=== PATIENT | male | born 1985 | race African-American/Black ===

== ENCOUNTER 2022-01-31 06:48 | Emergency (ER) | payer MEDICAID ==
[~2022-01-31] VITALS: Ht 182.9 cm; Wt 73.0 kg
[2022-01-31 06:58] VITALS: BP 106/67
[2022-01-31] MEDS ORDERED: NYSTATIN 100,000 UNITS/ML 5ML UDC SSW STA (08:24)
[2022-01-31] MEDS ORDERED: ACET160S MT (09:10)
== END 2022-01-31 09:47 | disposition home or self-care (01) ==
LOC: ER 06:48
DX: K20.90 Esophagitis, unspecified without bleeding (principal); I10 Essential (primary) hypertension; J45.909 Unspecified asthma, uncomplicated
CPT/HCPCS: 99283

== ENCOUNTER 2022-03-26 13:02 | Inpatient (IN) | payer MEDICAID ==
[~2022-03-26] VITALS: Ht 182.9 cm; Wt 64.9 kg
[~2022-03-26 13:02] MED LIST: ALBU6.7H3 ORI; BUSP5TAB3 PO; HYDR-4001 PO; SULF-292 PO; ZITH6 PO
[2022-03-26] MEDS ORDERED: ACETAMINOPHEN 325MG TABLET PO ONE (14:45)
[2022-03-26 15:15] LABS: HEMATOCRIT. 27.2 % (42.0-52.0); HEMOGLOBIN. 8.9 g/dL (14.0-18.0); MEAN CORPUSCULAR HEMOGLOBIN 26.2 pg (28.0-32.0); MEAN CORPUSCULAR VOLUME 80.4 fL (80.0-94.0); MEAN PLATELET VOLUME 7.1 fl (7.4-10.4); PLATELET 305 x1000/uL (130-400); RED BLOOD CELL COUNT 3.38 mill/uL (4.7-6.1); RED CELL DISTRIBUTION WIDTH 20.3 % (11.6-14.6)
[2022-03-26] MEDS ORDERED: SODIUM CHLORIDE 0.9% 1,000 ML IV ONE (15:15)
[2022-03-26 15:25] LABS: CHLORIDE 106 mEq/L (98-107)
[2022-03-26 17:13] LABS: PLATELET ESTIMATE NORMAL
[2022-03-26] MEDS ORDERED: ONDANSETRON HCL 4MG/2ML INJ IV PRN (17:30)
[2022-03-26] MEDS ORDERED: CLONIDINE 0.1MG TABLET PO PRN (17:30)
[2022-03-26] MEDS ORDERED: NALOXONE HCL 0.4MG/ML VIAL IV PRN (17:30)
[2022-03-26] MEDS ORDERED: DIPHENHYDRAMINE 50MG/ML VIAL IV PRN (17:30)
[2022-03-26] MEDS: HYDROCODONE/ACETAMINOPHEN 5/325MG TABLET PO PRN (19:03)
[2022-03-26] MEDS: SULFAMETHOXAZOLE/TRIMETHOPRIM 800/160MG TABLET PO SCH (19:03)
[2022-03-27] MEDS: HYDROCODONE/ACETAMINOPHEN 5/325MG TABLET PO PRN ×5 (01:25→19:35)
[2022-03-27 07:30] VITALS: BP 115/62
[2022-03-27 08:00] VITALS: BP 115/62
[2022-03-27] MEDS: IPRATROPIUM/ALBUTEROL 0.5-3(2.5)MG/3ML NEB HHN SCH ×2 (08:24→13:36)
[2022-03-27 09:43] LABS: HEMATOCRIT. 24.6 % (42.0-52.0); MEAN CORPUSCULAR HEMOGLOBIN 26.3 pg (28.0-32.0); MEAN CORPUSCULAR VOLUME 80.7 fL (80.0-94.0); MEAN PLATELET VOLUME 7.6 fl (7.4-10.4); PLATELET 261 x1000/uL (130-400); RED BLOOD CELL COUNT 3.05 mill/uL (4.7-6.1); RED CELL DISTRIBUTION WIDTH 19.8 % (11.6-14.6)
[2022-03-27 09:53] LABS: CHLORIDE 110 mEq/L (98-107)
[2022-03-27 12:00] VITALS: BP 114/66
[2022-03-27 13:43] LABS: PLATELET ESTIMATE NORMAL
[2022-03-27 16:00] VITALS: BP 108/68
[2022-03-27] MEDS: SULFAMETHOXAZOLE/TRIMETHOPRIM 800/160MG TABLET PO SCH (17:09)
[2022-03-27 20:00] VITALS: BP 112/73
[2022-03-27 23:57] VITALS: BP 107/68
[2022-03-28] MEDS: HYDROCODONE/ACETAMINOPHEN 5/325MG TABLET PO PRN ×4 (01:22→20:49)
[2022-03-28 04:00] VITALS: BP 118/69
[2022-03-28 08:00] VITALS: BP 123/77
[2022-03-28 12:00] VITALS: BP 116/74
[2022-03-28 16:00] VITALS: BP 112/70
[2022-03-28] MEDS: SULFAMETHOXAZOLE/TRIMETHOPRIM 800/160MG TABLET PO SCH (17:58)
[2022-03-28 20:00] VITALS: BP 119/68
[2022-03-28] MEDS: IPRATROPIUM BROMIDE (0.02%) 0.5MG/2.5ML NEB HHN SCH (20:45)
[2022-03-28] MEDS: ALBUTEROL (0.083%) 2.5MG/3ML NEB HHN SCH (20:45)
[2022-03-29] MEDS: HYDROCODONE/ACETAMINOPHEN 5/325MG TABLET PO PRN ×4 (01:11→16:14)
[2022-03-29 01:15] VITALS: BP 103/70
[2022-03-29] MEDS: IPRATROPIUM BROMIDE (0.02%) 0.5MG/2.5ML NEB HHN SCH ×2 (02:45→08:45)
[2022-03-29] MEDS: ALBUTEROL (0.083%) 2.5MG/3ML NEB HHN SCH ×2 (02:45→08:45)
[2022-03-29 08:00] VITALS: BP 103/69
[2022-03-29 12:00] VITALS: BP 112/71
[2022-03-29] MEDS ORDERED: IPRATROPIUM/ALBUTEROL 0.5-3(2.5)MG/3ML NEB HHN PRN (14:00)
[2022-03-29] MEDS ORDERED: IPRATROPIUM BROMIDE (0.02%) 0.5MG/2.5ML NEB HHN PRN (14:15)
[2022-03-29] MEDS ORDERED: ALBUTEROL (0.083%) 2.5MG/3ML NEB HHN PRN (14:15)
[2022-03-29 16:00] VITALS: BP 118/79
[2022-03-29] MEDS ORDERED: ZITH6 PO (17:05)
[2022-03-29] MEDS: SULFAMETHOXAZOLE/TRIMETHOPRIM 800/160MG TABLET PO SCH (17:28)
[2022-03-29 18:12] VITALS: BP 118/71
== END 2022-03-29 18:30 | disposition home or self-care (01) | DRG 813 ==
LOC: ER 13:02 → MICUSO 16:48 → EDBEDREQTM 16:53 → EDBEDREQ 16:53 → 7WST 03-27 06:34
PROVIDERS: ADMIT Internal Medicine; ATTEND Internal Medicine
DX: T85.9XXA Unspecified complication of internal prosthetic device, implant and graft, initial encounter (principal); E43 Unspecified severe protein-calorie malnutrition; D72.825 Bandemia; E78.5 Hyperlipidemia, unspecified; F41.9 Anxiety disorder, unspecified; J45.909 Unspecified asthma, uncomplicated; Z87.891 Personal history of nicotine dependence; R07.89 Other chest pain; Y84.8 Other medical procedures as the cause of abnormal reaction of the patient, or of later complication, without mention of misadventure at the time of the procedure; Y92.89 Other specified places as the place of occurrence of the external cause
CPT/HCPCS: 36415; 71045; 71046; 80053; 85025; 93005; 93970; 94640; 99285; J7030

== ENCOUNTER 2022-06-17 10:01 | Emergency (ER) | payer MEDICAID ==
[~2022-06-17] VITALS: Ht 188 cm; Wt 90.0 kg
[2022-06-17] MEDS ORDERED: AMOX1TAB16 MT (11:51)
[2022-06-17] MEDS ORDERED: FLUC100T42 MT (11:51)
[2022-06-17] MEDS ORDERED: SULF-292 PO (11:51)
[2022-06-17] MEDS ORDERED: FLUCONAZOLE 100MG TABLET PO NR (12:00)
[2022-06-17] MEDS ORDERED: KETOROLAC 30MG/ML VIAL IM NR (12:00)
[2022-06-17 13:07] VITALS: BP 117/75
== END 2022-06-17 13:11 | disposition home or self-care (01) ==
LOC: ER 10:01
DX: J03.90 Acute tonsillitis, unspecified (principal); J45.909 Unspecified asthma, uncomplicated; Z91.013 Allergy to seafood
CPT/HCPCS: 96372; 99283; J1885

== ENCOUNTER 2022-07-21 11:30 | Emergency (ER) | payer MEDICAID ==
[~2022-07-21] VITALS: Ht 182.9 cm; Wt 80.0 kg
[~2022-07-21 11:30] MED LIST changes: +AMOX1TAB16 MT; +FLUC100T42 MT
[2022-07-21 12:45] VITALS: BP 132/71
[2022-07-21] MEDS ORDERED: IBUPROFEN 400MG TABLET PO ONE (12:45)
[2022-07-21] MEDS ORDERED: DEXAMETHASONE 4MG TABLET PO ONE (12:45)
[2022-07-21] MEDS ORDERED: ACETAMINOPHEN 325MG TABLET PO ONE (12:45)
[2022-07-21] MEDS ORDERED: FLUC100T MT (13:36)
[2022-07-21] MEDS ORDERED: AMOX1TAB16 MT (13:36)
[2022-07-21] MEDS ORDERED: AMOXICILLIN/POTASSIUM CLAVULANATE 875/125MG TAB PO ONE (13:45)
[2022-07-21] MEDS ORDERED: FLUCONAZOLE 100MG TABLET PO ONE (13:45)
== END 2022-07-21 15:22 | disposition home or self-care (01) ==
LOC: ER 11:36
DX: J02.9 Acute pharyngitis, unspecified (principal); F12.90 Cannabis use, unspecified, uncomplicated; Z87.891 Personal history of nicotine dependence; Z91.013 Allergy to seafood
CPT/HCPCS: 99284; J8540

== ENCOUNTER 2022-08-20 05:13 | Emergency (ER) | payer MEDICAID ==
[~2022-08-20] VITALS: Ht 182.9 cm; Wt 73.0 kg
[~2022-08-20 05:13] MED LIST changes: +FLUC100T MT
[2022-08-20 05:45] VITALS: BP 126/72
[2022-08-20] MEDS ORDERED: ACETAMINOPHEN WITH CODEINE 300/30MG TABLET PO ONE (05:45)
[2022-08-20] MEDS ORDERED: IBUP-2028 PO (07:13)
[2022-08-20] MEDS ORDERED: VORI200T3 MT (09:28)
== END 2022-08-20 07:58 | disposition home or self-care (01) ==
LOC: ER 05:13
DX: M25.561 Pain in right knee (principal); F12.10 Cannabis abuse, uncomplicated; Z79.899 Other long term (current) drug therapy; Z91.013 Allergy to seafood
CPT/HCPCS: 73560; 99283; Z7610

== ENCOUNTER 2022-08-20 08:00 | Emergency (ER) | payer MEDICAID ==
[~2022-08-20] VITALS: Ht 182.9 cm; Wt 68.2 kg
[~2022-08-20 08:00] MED LIST changes: +IBUP-2028 PO
[2022-08-20 08:20] VITALS: BP 164/93
[2022-08-20] MEDS ORDERED: VORI200T3 MT (09:28)
== END 2022-08-20 10:09 | disposition home or self-care (01) ==
LOC: ER 08:00
DX: B37.9 Candidiasis, unspecified (principal); F12.10 Cannabis abuse, uncomplicated; F17.200 Nicotine dependence, unspecified, uncomplicated; Z00.00 Encounter for general adult medical examination without abnormal findings; Z91.013 Allergy to seafood
CPT/HCPCS: 87070; 87430; 99283

== ENCOUNTER 2022-08-30 13:54 | Emergency (ER) | payer MEDICAID ==
[~2022-08-30] VITALS: Ht 182.9 cm; Wt 68.0 kg
[~2022-08-30 13:54] MED LIST changes: +VORI200T3 MT
[2022-08-30 14:16] VITALS: BP 116/80; PULSE 100; RESP 18; O2SAT 100
[2022-08-30] MEDS ORDERED: IBUP-2029 MT (15:44)
[2022-08-30] MEDS ORDERED: FLUC100T MT (15:44)
[2022-08-30 15:45] VITALS: TEMP 98.9
[2022-08-30] MEDS ORDERED: ACETAMINOPHEN 325MG TABLET PO ONE (15:45)
[2022-08-30] MEDS ORDERED: NYSTATIN 100,000 UNITS/ML 5ML UDC SSW ONE (15:45)
== END 2022-08-30 16:21 | disposition home or self-care (01) ==
LOC: ER 13:54
DX: B37.0 Candidal stomatitis (principal); F12.10 Cannabis abuse, uncomplicated
CPT/HCPCS: 99283

== ENCOUNTER 2022-10-07 07:33 | Emergency (ER) | payer MEDICAID ==
[~2022-10-07] VITALS: Ht 182.9 cm; Wt 68.0 kg
[~2022-10-07 07:33] MED LIST changes: +IBUP-2029 MT
[2022-10-07 08:27] VITALS: TEMP 98.8; O2SAT 100
[2022-10-07] MEDS ORDERED: KETOROLAC 60MG/2ML VIAL IM NR (10:28)
[2022-10-07] MEDS ORDERED: PENICILLIN G BENZATHINE 1,200,000 UNITS/2ML SYR IM NR (10:30)
[2022-10-07 10:32] VITALS: BP 103/62; PULSE 89; RESP 18
[2022-10-07] MEDS ORDERED: ACETAMINOPHEN WITH CODEINE 300/30MG TABLET PO STA (10:32)
[2022-10-07] MEDS ORDERED: NYSTATIN 100,000 UNITS/ML 5ML UDC SSW ONE (10:45)
[2022-10-07] MEDS ORDERED: SULF1TAB48 PO (11:24)
[2022-10-07] MEDS ORDERED: FLUC200T51 MT (11:24)
[2022-10-07] MEDS ORDERED: CEPH500C2 MT (11:24)
[2022-10-07] MEDS ORDERED: NAPR-681 PO (11:24)
== END 2022-10-07 11:46 | disposition home or self-care (01) ==
LOC: ER 07:33
DX: J02.9 Acute pharyngitis, unspecified (principal); J34.0 Abscess, furuncle and carbuncle of nose; F12.10 Cannabis abuse, uncomplicated; Z88.8 Allergy status to other drugs, medicaments and biological substances
CPT/HCPCS: 87430; 87070; 96372; 99284; J1885; J0561; Z7610

== ENCOUNTER 2022-10-12 11:19 | Emergency (ER) | payer MEDICAID ==
[~2022-10-12] VITALS: Ht 182.9 cm; Wt 152.0 kg
[~2022-10-12 11:19] MED LIST changes: +CEPH500C2 MT; +FLUC200T51 MT; +NAPR-681 PO; +SULF1TAB48 PO
[2022-10-12 11:39] VITALS: BP 131/75; PULSE 80; RESP 16; TEMP 98.3; O2SAT 100
== END 2022-10-12 16:07 | disposition left against medical advice (07) ==
LOC: ER 11:59
DX: Z53.21 Procedure and treatment not carried out due to patient leaving prior to being seen by health care provider (principal)
CPT/HCPCS: 99281

== ENCOUNTER 2023-03-10 18:20 | Emergency (ER) | payer MEDICAID ==
[~2023-03-10] VITALS: Ht 175.3 cm; Wt 65.0 kg
[2023-03-10 18:33] VITALS: BP 119/75; PULSE 91; RESP 16; TEMP 98.2; O2SAT 99
[2023-03-10] MEDS ORDERED: DIPHENHYDRAMINE 50MG/ML VIAL IV ONE (19:15)
[2023-03-10] MEDS ORDERED: METHYLPREDNISOLONE SOD SUCC 40MG/ML (ACT-O-VIAL) IV SCH (19:15)
[2023-03-10] MEDS ORDERED: SODIUM CHLORIDE 0.9% 1,000 ML IV ONE (19:15)
[2023-03-10] MEDS ORDERED: METHYLPREDNISOLONE SOD SUCC 40MG VIAL IV ONE (19:15)
== END 2023-03-10 20:04 | disposition left against medical advice (07) ==
LOC: ER 18:20
DX: T78.40XA Allergy, unspecified, initial encounter (principal); J45.909 Unspecified asthma, uncomplicated; F12.90 Cannabis use, unspecified, uncomplicated; Z91.013 Allergy to seafood; X58.XXXA Exposure to other specified factors, initial encounter
CPT/HCPCS: 99283; J7030; J2920